=== PATIENT | female | born 1975 | race Caucasian/White ===

== ENCOUNTER 2018-12-16 16:43 | Observation (INO) ==
[2018-12-16] MEDS ORDERED: Isovue-370 500 ML BOTTLE IVP ONE (17:00)
[2018-12-16 17:46] LABS: Basophils # 0.1 K/mcL (0.0-0.2); Basophils % 0.3 %; Eosinophils % 0.2 %; Hematocrit 37.9 % (35.3-44.9); Hemoglobin 12.5 g/dL (11.5-15.4); Immature Granulocytes % 0.7 % (0-4); Lymphocytes # 2.7 K/mcL (0.6-4.6); Mean Corpuscular Hemoglobin 30.1 pg (28.0-33.3); Mean Corpuscular Volume 91.3 fL (83.0-100.0); Mean Platelet Volume 9.4 fL (9.4-12.4); Monocytes # 1.3 K/mcL (0.0-1.3); Monocytes % 5.7 %; Neutrophils # 17.9 K/mcL (1.6-8.9); Platelet Count 347 K/mcL (140-400); Red Blood Count 4.15 M/mcL (3.82-4.97); Red Cell Distribution Width 12.7 % (11.5-14.5); Segmented Neutrophils % 81.1 %; White Blood Count 22.1 K/mcL (4.3-11.1)
[2018-12-16 17:54] LABS: INR 1.2
[2018-12-16 18:07] LABS: Alanine Aminotransferase 19 Units/L (7-52); Albumin/Globulin Ratio 1.3 (1.1-2.2); Alkaline Phosphatase 66 Units/L (34-104); Aspartate Amino Transferase 15 Units/L (13-39); BUN/Creatinine Ratio 10 (6-26); Bilirubin,Direct 0.1 mg/dL (0.0-0.2); Bilirubin,Indirect 0.2 mg/dL (0.0-1.2); Bilirubin,Total 0.3 mg/dL (0.3-1.0); Blood Urea Nitrogen 8 mg/dL (6-20); Calcium 9.5 mg/dL (8.6-10.3); Carbon Dioxide 25 mEq/L (23-29); Chloride 100 mEq/L (98-107); Globulin 3.2 g/dL (2.4-3.5); Glucose 102 mg/dL (70-105); Lipase 9 Units/L (11-82); Osmolality,Calculated 281 (280-300); Potassium 3.6 mEq/L (3.5-5.1); Sodium 136 mEq/L (136-145); Total Protein 7.2 g/dL (6.4-8.9); eGFR For African Americans > 60 (> 60); eGFR For Non-African Americans > 60 (> 60)
[2018-12-16 18:19] LABS: Bilirubin,Urine Small (Negative); Blood,Urine Negative (Negative); Clarity,Urine Clear (Clear); Color,Urine Dark Yellow (Yellow); Glucose,Urine (UA) Normal (Normal); Ketones,Urine 15 mg/dL (Negative); Leukocyte Esterase,Urine Negative (Negative); Nitrite,Urine Negative (Negative); PH,Urine 5.5 pH Units (5.0-8.0); Protein,Urine 30 mg/dL (Neg-Trace); Urobilinogen,Urine Normal (Normal)
[2018-12-16 18:21] LABS: Bacteria,Urine None Seen per hpf (None-Few); Hyaline Casts,Urine None Seen per lpf (None-Few); Squamous Epithelial Cell,Urine Many per lpf (None-Few); WBC,Urine 0-3 per hpf (0-3)
[2018-12-16] MEDS ORDERED: Piperacillin/Tazobactam 3.375 GM in Water for inj. (sterile) 20 ML IVP ONE (19:06)
[2018-12-16] MEDS ORDERED: 0.9 % Sodium Chloride 500 ML IVC ONE (19:17)
[2018-12-16] MEDS: 0.9 % Sodium Chloride 1,000 ML IVC SCH (20:39)
[2018-12-17] MEDS ORDERED: Lidocaine -MPF 2% 2 ML VIAL ONE (01:37)
[2018-12-17] MEDS ORDERED: *HR* Propofol 200 MG/20 ML VIAL IVP ONE (01:37)
[2018-12-17] MEDS ORDERED: Dexamethasone 4 MG/ML VIAL ONE (01:37)
[2018-12-17] MEDS ORDERED: Ondansetron 4 MG/2 ML VIAL ONE (01:37)
[2018-12-17] MEDS ORDERED: *HR* FentaNYL (PF) 100 MCG/2 ML VIAL ONE (01:37)
[2018-12-17] MEDS ORDERED: *HR* Midazolam HCl 2 MG/2 ML VIAL ONE (01:37)
[2018-12-17] MEDS ORDERED: *HR* Succinylcholine 200 MG/10 ML VIAL IVP ONE (01:37)
[2018-12-17] MEDS ORDERED: *HR* OxyCODONE Immed Rel 5 MG TABLET PO ONE (02:44)
[2018-12-17] MEDS ORDERED: Ondansetron 4 MG/2 ML VIAL IVP PRN (03:27)
[2018-12-17] MEDS ORDERED: 0.9 % Sodium Chloride 1,000 ML IVC SCH (03:27)
[2018-12-17] MEDS: 0.9 % Sodium Chloride 1,000 ML IVC SCH (03:30)
[2018-12-17] MEDS: Piperacillin/Tazobactam 3.375 GM in 0.9 % Sodium Chloride Mini Bag 100 ML IVPB SCH ×3 (03:48→20:01)
[2018-12-17 10:18] LABS: Hemoglobin 12.3 g/dL (11.5-15.4); Mean Corpuscular HGB Conc 33.2 g/dL (31.6-35.5); Mean Corpuscular Hemoglobin 30.9 pg (28.0-33.3); Mean Platelet Volume 9.3 fL (9.4-12.4); Platelet Count 343 K/mcL (140-400); Red Blood Count 3.98 M/mcL (3.82-4.97); Red Cell Distribution Width 12.6 % (11.5-14.5); White Blood Count 21.3 K/mcL (4.3-11.1)
[2018-12-17] MEDS: *HR* Heparin 5,000 UNIT/ML VIAL SQ SCH (17:41)
[2018-12-17] MEDS: Ibuprofen 800 MG TABLET PO PRN (17:41)
[2018-12-17] MEDS: *HR* OxyCODONE/APAP 5/325 TABLET PO PRN (20:01)
[2018-12-18 04:30] LABS: Basophils % 0.3 %; Eosinophils # 0.1 K/mcL (0.0-0.6); Eosinophils % 0.8 %; Hematocrit 33.7 % (35.3-44.9); Immature Granulocytes % 0.8 % (0-4); Lymphocytes # 4.3 K/mcL (0.6-4.6); Lymphocytes % 26.8 %; Mean Corpuscular HGB Conc 32.6 g/dL (31.6-35.5); Mean Corpuscular Hemoglobin 30.6 pg (28.0-33.3); Mean Corpuscular Volume 93.6 fL (83.0-100.0); Mean Platelet Volume 9.1 fL (9.4-12.4); Monocytes # 0.8 K/mcL (0.0-1.3); Monocytes % 5.1 %; Neutrophils # 10.6 K/mcL (1.6-8.9); Platelet Count 328 K/mcL (140-400); Red Cell Distribution Width 12.6 % (11.5-14.5); Segmented Neutrophils % 66.2 %
[2018-12-18] MEDS: Piperacillin/Tazobactam 3.375 GM in 0.9 % Sodium Chloride Mini Bag 100 ML IVPB SCH ×3 (04:45→21:29)
[2018-12-18 04:52] LABS: BUN/Creatinine Ratio 9 (6-26); Blood Urea Nitrogen 6 mg/dL (6-20); Carbon Dioxide 28 mEq/L (23-29); Chloride 107 mEq/L (98-107); Glucose 115 mg/dL (70-105); Osmolality,Calculated 287 (280-300); Potassium 4.2 mEq/L (3.5-5.1); Sodium 139 mEq/L (136-145); eGFR For African Americans > 60 (> 60); eGFR For Non-African Americans > 60 (> 60)
[2018-12-18] MEDS: *HR* Heparin 5,000 UNIT/ML VIAL SQ SCH ×2 (06:27→17:03)
[2018-12-18] MEDS: Pantoprazole 40 MG VIAL IVP SCH (08:00)
[2018-12-18] MEDS: Ibuprofen 800 MG TABLET PO PRN (08:27)
[2018-12-18] MEDS: *HR* OxyCODONE/APAP 5/325 TABLET PO PRN (20:30)
[2018-12-19 03:16] LABS: Basophils # 0.1 K/mcL (0.0-0.2); Basophils % 0.6 %; Eosinophils # 0.2 K/mcL (0.0-0.6); Eosinophils % 1.7 %; Hemoglobin 11.1 g/dL (11.5-15.4); Immature Granulocytes % 0.8 % (0-4); Lymphocytes % 46.8 %; Mean Corpuscular HGB Conc 32.6 g/dL (31.6-35.5); Mean Corpuscular Hemoglobin 30.2 pg (28.0-33.3); Mean Corpuscular Volume 92.4 fL (83.0-100.0); Mean Platelet Volume 9.7 fL (9.4-12.4); Monocytes # 0.6 K/mcL (0.0-1.3); Monocytes % 4.6 %; Neutrophils # 5.7 K/mcL (1.6-8.9); Platelet Count 358 K/mcL (140-400); Red Blood Count 3.68 M/mcL (3.82-4.97); Red Cell Distribution Width 12.6 % (11.5-14.5); Segmented Neutrophils % 45.5 %; White Blood Count 12.5 K/mcL (4.3-11.1)
[2018-12-19 03:48] LABS: Lymphocytes # 5.9 K/mcL (0.6-4.6)
[2018-12-19 04:22] LABS: Platelet Estimate Normal (Normal)
[2018-12-19] MEDS: Piperacillin/Tazobactam 3.375 GM in 0.9 % Sodium Chloride Mini Bag 100 ML IVPB SCH ×3 (05:06→20:42)
[2018-12-19] MEDS: *HR* Heparin 5,000 UNIT/ML VIAL SQ SCH ×2 (05:06→17:51)
[2018-12-19] MEDS: Pantoprazole 40 MG VIAL IVP SCH (07:47)
[2018-12-20] MEDS: Piperacillin/Tazobactam 3.375 GM in 0.9 % Sodium Chloride Mini Bag 100 ML IVPB SCH (04:42)
[2018-12-20] MEDS: *HR* Heparin 5,000 UNIT/ML VIAL SQ SCH (04:43)
[2018-12-20 05:17] LABS: Basophils # 0.1 K/mcL (0.0-0.2); Basophils % 0.9 %; Eosinophils # 0.2 K/mcL (0.0-0.6); Eosinophils % 1.2 %; Hematocrit 35.7 % (35.3-44.9); Hemoglobin 11.8 g/dL (11.5-15.4); Lymphocytes # 5.1 K/mcL (0.6-4.6); Lymphocytes % 39.4 %; Mean Corpuscular HGB Conc 33.1 g/dL (31.6-35.5); Mean Corpuscular Hemoglobin 30.2 pg (28.0-33.3); Mean Corpuscular Volume 91.3 fL (83.0-100.0); Mean Platelet Volume 9.2 fL (9.4-12.4); Monocytes # 0.8 K/mcL (0.0-1.3); Monocytes % 5.8 %; Neutrophils # 6.7 K/mcL (1.6-8.9); Platelet Count 390 K/mcL (140-400); Red Blood Count 3.91 M/mcL (3.82-4.97); Red Cell Distribution Width 12.2 % (11.5-14.5); Segmented Neutrophils % 51.7 %; White Blood Count 12.9 K/mcL (4.3-11.1)
[2018-12-20 07:09] VITALS: BP 122/82
[2018-12-20] MEDS: Pantoprazole 40 MG VIAL IVP SCH (07:47)
[2018-12-20] MEDS ORDERED: levoFLOXacin 750 MG TABLET PO SCH (09:00)
[2018-12-20] MEDS ORDERED: Amoxicillin 500 MG CAPSULE PO SCH (09:00)
[2018-12-20] MEDS ORDERED: NON-FORMULARY MEDICATION 1 EACH EACH (Norgestimate-Ethinyl Estradiol [Sprintec 28 Day Tabl PO SCH (09:00)
[2018-12-20] MEDS: *HR* OxyCODONE/APAP 5/325 TABLET PO PRN (11:44)
== END 2018-12-20 12:01 | disposition home or self-care (01) ==
LOC: EMEROOARM 16:43 → 3ANU 16:43
PROVIDERS: ADMIT Surgery; ATTEND Surgery